=== PATIENT | female | born 1990 | race Caucasian/White ===

== ENCOUNTER 2016-10-08 08:14 | Emergency (ER) | payer MEDICAID ==
[2016-10-08] MEDS ORDERED: METOCLOPRAMIDE 10 MG/2 ML VIAL ONE (09:48)
[2016-10-08] MEDS ORDERED: SODIUM CHLORIDE 0.9% 1,000 ML ONE (09:48)
[2016-10-08] MEDS ORDERED: DIPHENHYDRAMINE 50 MG/ML VIAL ONE (09:48)
[2016-10-08] MEDS ORDERED: KETOROLAC 30 MG/ML VIAL ONE (10:09)
== END 2016-10-08 11:58 | disposition home or self-care (01) ==
LOC: ER 08:14
DX: R51 Headache (principal); F17.200 Nicotine dependence, unspecified, uncomplicated
CPT/HCPCS: 81025; 96361; 96374; 96375